=== PATIENT | female | born 1990 | race Caucasian/White ===

== ENCOUNTER 2020-07-07 10:19 | Emergency (ER) | payer SELFPAY ==
[2020-07-07 10:24] VITALS: BP 148/89; PULSE 111; RESP 18; TEMP 36.5; O2SAT 97; BMI 66.5
--- NOTE | 2020-07-07 10:35 | CT_ITS ---
WS: [id number] CT ABDOMEN PELVIS TECHNIQUE: Contrast-enhanced CT of the abdomen and pelvis with coronal and sagittal reformatted image s. CLINICAL INFORMATION: abd pain COMPARISON: None. DLP: 2257.[address] scans at [facility] use at least one of these dose optimization techniques: automat ed exposure control; mA and/or kV adjustment per patient size (includes targeted exams where dose is matched to clinical indication); or iterative reconstruction. FINDINGS: Liver appears normal. Prior cholecystectomy. Normal spleen. Normal GE junction. Lung bases are well a erated. Pancreas appears normal. Normal adrenal glands. No hydronephrosis in either kidney. Normal sigmoid colon. No evidence of small or large bowel obstruction. Fat-containing umbilical herni a. Bowel. Normal caliber abdominal aorta. No abdominal or pelvic lymphadenopathy. Low-attenuation lesion in the right adnexa measuring 4.1 x 3.2 cm. This may represent Ovarian cyst bu t nonspecific. This directly abuts a few loops of small bowel. This can be followed up with ultrasoun d. No free fluid in the pelvis. Normal left adnexa. CT/CT abdomen pelvis w con* [id number] IMPRESSION: 1. Low-attenuation lesion high right adnexa measuring 1.1 x 3.2 cm may represe nt Ovarian cyst but nonspecific. This can be followed up with ultrasound. 2. No evidence of small or large bowel obstruction. 3. Prior cholecystectomy. 4. No free fluid in the abdomen or pelvis. 5. Fat-containing umbilical hernia. 6. No other significant findings.
[2020-07-07 11:09] LABS: Basophils % 0.2 %; Eosinophils # 0.2 10^3/uL (0.0-0.8); Eosinophils % 1.8 %; Hematocrit 45.5 % (37.0-47.0); Hemoglobin 14.5 g/dL (11.5-15.3); Lymphocytes # 1.6 10^3/uL (0.8-4.8); Lymphocytes % 17.3 %; Mean Corpuscular HGB Conc 31.9 g/dL (30.0-36.0); Mean Corpuscular Hemoglobin 30.1 pg (28.0-34.0); Mean Corpuscular Volume 94.4 fL (81-99); Monocytes # 0.5 10^3/uL (0.2-0.9); Monocytes % 5.1 %; Neutrophils # 6.87 10^3/uL (1.8-7.7); Neutrophils % 75.3 %; Nucleated Red Blood Cells % 0 %; Platelet Count 236 10^3/cmm (130-400); Red Blood Count 4.82 10^6/uL (4.1-5.3); Red Cell Distribution Width 14.3 % (12.1-15.1); White Blood Count 9.1 10^3/uL (4.0-10.0)
[2020-07-07 11:13] VITALS: PULSE 88
[2020-07-07 11:14] LABS: HCG Qualitative Urine. Negative (Negative)
--- NOTE | 2020-07-07 11:23 | ED_ITS ---
HPI - Abdominal Pain General: Chief Complaint: Abdominal Pain Stated Complaint: R SIDE AB PAIN Time Seen by Provider: 07/07/20 10:26 History of Present Illness: HPI narrative: 29-year-old female presents emergency room with living will right sided pain that began last night.. Mid abdomen along the right flank little bit more anteriorly. She denies any dysuria urgency or frequency no hematuria no nausea vomiting or diarrhea. Seems to radiate towards her umbilicus and into the lower quadrant a little bit more. She states her last period was 2 weeks ago and was normal for her. She denies any pelvic cramping or pain. No hematochezia melena hematemesis coffee-ground emesis. Function otherwise been normal. MD elicited complaint: abdominal pain Pertinent past history: none Onset (ago): hour(s) Location: RLQ and R flank Quality: cramping and aching Radiation: other (Periumbilical) Exacerbating factors: nothing Relieving factors: nothing Associated Symptoms: Reports bloating; Denies anorexia, belching, change in bowel habits, change in stool character, chills, coffee ground emesis, constipation, GI cramping, diarrhea, dyspepsia, dysuria, excessive flatus, fever(s), heartburn, hematochezia, hematuria, hematemesis, fecal incontinence, loose stools, melena, nausea, poor appetite, syncope and vomiting Related Data: Date of Last Menstrual Period: 06/21/20 Review of Systems Const: Denies: fever(s) or chills ENMT: Denies: throat pain, ear or mastoid pain, nasal discharge or nasal congestion Card: Denies: syncope Resp: Denies: dyspnea, productive cough or non-productive cough GI: Reports: bloating; Denies: nausea, vomiting, hematemesis, coffee ground emesis, heartburn, diarrhea, constipation, GI cramping, belching, excessive flatus, fecal inc ontinence, change in bowel habits, change in stool character, hematochezia or melena : Denies: dysuria or hematuria Skin/Breast: Denies: rash or pruritus [facility] ED Female Reproductive History: Date of last menstrual period: 06/21/20 Physical Exam Const: COMMON NORMALS: no acute distress GENERAL APPEARANCE: cooperative and comfortable ORIENTATION/CONSCIOUSNESS: Yes awake, Yes oriented to person, Yes oriented to place and Yes oriented to time HENMT: COMMON NORMALS: normocephalic, atraumatic, hearing grossly normal bilaterally, external ears normal, EAC's normal, TM's normal bilaterally, Normal nasal mucous membranes and turbinates present, moist oral mucous membranes and oropharynx normal HEAD & SCALP: normocephalic and atraumatic NOSE: Normal nasal mucous membranes and turbinates present EXTERNAL EAR: Yes external ears normal EXTERNAL AUDITORY CANAL: EAC's normal TYMPANIC MEMBRANE: TM's normal bilaterally Neck/C-Spine: COMMON NORMALS: no JVD Resp: COMMON NORMALS: normal respiratory effort, No retractions, No use of accessory muscles and clear to auscultation bilaterally AUSCULTATION: clear to auscultation bilaterally Cardio: COMMON NORMALS: no JVD, regular rate, regular rhythm and No murmurs present (Cardio) RATE: regular rate RHYTHM: regular rhythm GI: COMMON NORMALS: Soft to palpation and No hepatosplenomegaly present AUSCULTATION: Yes normoactive bowel sounds PALPATION: Yes Soft to palpation, No Tenderness to palpation present (GI), No Guarding due to palpation present (GI) and Yes No hepatosplenomegaly present Extremity: COMMON NORMALS: normal to inspection, capillary refill normal, no clubbing, cyanosis or edema, no calf tenderness and no pedal edema Neuro: SENSORIUM/ORIENTATION: Yes oriented to person, Yes oriented to place and Yes oriented to time Skin: COMMON NORMALS: no rashes or lesions noted GENERAL SKIN EXAM: no rashes or lesions noted Course Vital Signs: Vital signs: Vital Signs Temperature 97.7 F 07/07/20 10:24 Pulse Rate 82 07/07/20 13:39 Respiratory Rate 16 07/07/20 13:39 Blood Pressure 118/88 07/07/20 13:39 Pulse Oximetry 98 07/07/20 13:39 MDM - Abdominal Pain MDM Narrative: Medical decision making narrative: CT shows ovarian cyst. She is feeling somewhat better. Going to discharge her home have her use diclofenac as needed follow-up with her primary care doctor for repeat ultrasound within the next 4 to 6 weeks. Lab Data: Labs: Lab Results 07/07/20 07/07/20 07/07/20 Range/Units 11:00 11:00 11:00 WBC 9.1 (4.0-10.0) 10^3/ uL RBC 4.82 (4.1-5.3) 10^6/u L Hgb 14.5 (11.5-15.3) g/dL Hct 45.5 (37.0-47.0) % MCV 94.4 (81-99) fL MCH 30.1 (28.0-34.0) pg MCHC 31.9 (30.0-36.0) g/dL RDW 14.3 (12.1-15.1) % Plt Count 236 (130-400) 10^3/c mm MPV 11.0 H (7.4-10.4) fL Neut % (Auto) 75.3 % Lymph % (Auto) 17.3 % Ness % (Auto) 5.1 % Eos % (Auto) 1.8 % Baso % (Auto) 0.2 % Neut # (Auto) 6.87 (1.8-7.7) 10^3/u L Lymph # (Auto) 1.6 (0.8-4.8) 10^3/u L Ness # (Auto) 0.5 (0.2-0.9) 10^3/u L Eos # (Auto) 0.2 (0.0-0.8) 10^3/u L Baso # (Auto) 0.0 (0.0-0.1) 10^3/u L Nucleated RBC % (a uto) 0 % Nucleated RBCs # 0.0 /100WBC Sodium 136 (136-145) mmol/L Potassium 4.0 (3.5-5.1) mmol/L Chloride 101 (98-107) mmol/L Carbon Dioxide 25 (22-29) mmol/L Anion Gap 14.0 (5-19) BUN 12 (6-20) mg/dL Creatinine 0.6 (0.5-0.9) mg/dL GFR Calculation 117.4 (90-130) mL/min Glucose 88 (65-115) mg/dL Calculated Osmolal ity Not Reportable Calcium 8.5 (8.5-10.5) mg/dL Total Bilirubin 0.5 (0.15-1.2) mg/dL AST 10 (0-32) U/L ALT 19 (0-33) U/L Alkaline Phosphata se 87 (35-105) IU/L Total Protein 7.2 (6.6-8.7) g/dL Albumin 4.1 (3.5-5.2) g/dL Globulin 3.1 (1.3-4.6) g/dL HCG, Qual Negative (Negative) Urine Color (Yellow) Urine Appearance (CLEAR) Urine pH (5-7) Ur Specific Gravit y (1.005-1.030) Urine Protein (Negative) Urine Glucose (UA) (Normal) Urine Ketones (Negative) Urine Blood (Negative) Urine Nitrate (Negative) Urine Bilirubin (Negative) Urine Urobilinogen (Negative) mg/dL Ur Leukocyte Lois ase (Negative) 07/07/20 Range/Units 11:00 WBC (4.0-10.0) 10^3/ uL RBC (4.1-5.3) 10^6/u L Hgb (11.5-15.3) g/dL Hct (37.0-47.0) % MCV (81-99) fL MCH (28.0-34.0) pg MCHC (30.0-36.0) g/dL RDW (12.1-15.1) % Plt Count (130-400) 10^3/c mm MPV (7.4-10.4) fL Neut % (Auto) % Lymph % (Auto) % Ness % (Auto) % Eos % (Auto) % Baso % (Auto) % Neut # (Auto) (1.8-7.7) 10^3/u L Lymph # (Auto) (0.8-4.8) 10^3/u L Ness # (Auto) (0.2-0.9) 10^3/u L Eos # (Auto) (0.0-0.8) 10^3/u L Baso # (Auto) (0.0-0.1) 10^3/u L Nucleated RBC % (a uto) % Nucleated RBCs # /100WBC Sodium (136-145) mmol/L Potassium (3.5-5.1) mmol/L Chloride (98-107) mmol/L Carbon Dioxide (22-29) mmol/L Anion Gap (5-19) BUN (6-20) mg/dL Creatinine (0.5-0.9) mg/dL GFR Calculation (90-130) mL/min Glucose (65-115) mg/dL Calculated Osmolal ity Calcium (8.5-10.5) mg/dL Total Bilirubin (0.15-1.2) mg/dL AST (0-32) U/L ALT (0-33) U/L Alkaline Phosphata se (35-105) IU/L Total Protein (6.6-8.7) g/dL Albumin (3.5-5.2) g/dL Globulin (1.3-4.6) g/dL HCG, Qual (Negative) Urine Color Yellow (Yellow) Urine Appearance Clear (CLEAR) Urine pH 5 (5-7) Ur Specific Gravit y 1.015 (1.005-1.030) Urine Protein Neg (Negative) Urine Glucose (UA) Norm (Normal) Urine Ketones Negative (Negative) Urine Blood Neg (Negative) Urine Nitrate Negative (Negative) Urine Bilirubin Neg (Negative) Urine Urobilinogen Norm (Negative) mg/dL Ur Leukocyte Lois ase Negative (Negative) Discharge Plan Discharge Patient Disposition: Home Clinical Impression: Ovarian cyst Condition: Stable Prescriptions: New diclofenac sodium 75 mg tablet,delayed release (DR/EC) 75 mg PO Q12H PRN (Reason: pain) Qty: 20 RF: 0 Discontinued ibuprofen 200 mg Tablet 800 mg PO PRN RF: 0 No Action Zyrtec 10 mg Tablet 10 mg PO DAILY RF: 0 Tension Headache 500-65 mg Tablet 2 tab PO PRN RF: 0 Discharge Orders: Discharge ED (Routine); Ordered 07/07/20 Ordered By: Esau Sorensen Referrals: Mk Samson MD [Primary Care Provider] - Discharge Diet: Usual diet Discharge Activity: Increase activity as tolerated Patient Instructions: Opioid Safety Coding Level of Care Code ED Assisted Living Nursing Director for Chg Fwd Exam Comprehensive
[2020-07-07 11:28] LABS: Add Urine Microscopic? NO; Charge for UA Resulting for Rev
[2020-07-07 11:30] LABS: Bilirubin Urine Neg (Negative); Blood Urine Neg (Negative); Glucose Urine UA Norm (Normal); Ketones Urine Negative (Negative); Leukocyte Esterase Urine Negative (Negative); Nitrate Urine Negative (Negative); Protein Urine Neg (Negative); Specific Gravity, Urine 1.015 (1.005-1.030); Urine Appearance Clear (CLEAR); Urine Color Yellow (Yellow); Urobilinogen Urine Norm (Negative); pH Urine 5 (5-7)
[2020-07-07 11:37] LABS: Alanine Aminotransferase 19 U/L (0-33); Albumin Level 4.1 g/dL (3.5-5.2); Alkaline Phosphatase 87 IU/L (35-105); Aspartate Amino Transferase 10 U/L (0-32); Blood Urea Nitrogen 12 mg/dL (6-20); Calcium 8.5 mg/dL (8.5-10.5); Carbon Dioxide 25 mmol/L (22-29); Chloride 101 mmol/L (98-107); Globulin 3.1 g/dL (1.3-4.6); Glomerular Filtration Rate 117.4 mL/min (90-130); Glucose 88 mg/dL (65-115); Sodium 136 mmol/L (136-145); Total Bilirubin 0.5 mg/dL (0.15-1.2); Total Protein 7.2 g/dL (6.6-8.7)
[2020-07-07] MEDS: iohexol 350 mg/mL 100 mL Btl IV (11:50)
[2020-07-07 13:39] VITALS: BP 118/88; PULSE 82; RESP 16; O2SAT 98
== END 2020-07-07 13:41 | disposition home or self-care (01) ==
PROVIDERS: Physician Assistant; Emergency Provider Family Medicine; PCP Family Medicine
DX: N83.201 Unspecified ovarian cyst, right side (principal)
CPT/HCPCS: 74177; 80053; 81003; 81025; 85025; 99283; Q9967

== ENCOUNTER 2021-01-01 13:14 | Emergency (ER) | payer OTHER, SELFPAY ==
[2021-01-01 13:45] VITALS: BP 143/94; PULSE 96; RESP 20; TEMP 37; O2SAT 97
[2021-01-01 14:21] LABS: Add Urine Microscopic? NO; Charge for UA Resulting for Rev
[2021-01-01 14:30] LABS: Bilirubin Urine Neg (Negative); Blood Urine Neg (Negative); Glucose Urine UA Norm (Normal); Ketones Urine Negative (Negative); Leukocyte Esterase Urine Negative (Negative); Nitrate Urine Negative (Negative); Protein Urine Neg (Negative); Urine Appearance Hazy (CLEAR); Urine Color Yellow (Yellow); Urobilinogen Urine Norm (Negative); pH Urine 6.5 (5-7)
[2021-01-01 16:30] LABS: Basophils # 0.1 10^3/uL (0.0-0.1); Basophils % 0.5 %; Eosinophils # 0.3 10^3/uL (0.0-0.8); Eosinophils % 2.7 %; Hematocrit 43.6 % (37.0-47.0); Hemoglobin 14.2 g/dL (11.5-15.3); Lymphocytes # 2.1 10^3/uL (0.8-4.8); Lymphocytes % 21.1 %; Mean Corpuscular HGB Conc 32.6 g/dL (30.0-36.0); Mean Corpuscular Hemoglobin 30.7 pg (28.0-34.0); Mean Corpuscular Volume 94.4 fl (81-99); Mean Platelet Volume 11.2 fL (7.4-10.4); Monocytes # 0.5 10^3/uL (0.2-0.9); Monocytes % 4.5 %; Neutrophils # 7.12 10^3/uL (1.8-7.7); Neutrophils % 70.9 %; Nucleated Red Blood Cells % 0 %; Platelet Count 266 10^3/cmm (130-400); Red Blood Count 4.62 10^6/uL (4.1-5.3); Red Cell Distribution Width 13.9 % (12.1-15.1)
--- NOTE | 2021-01-01 16:35 | CTR_ITS ---
PROCEDURE INFORMATION: Exam: CT Abdomen And Pelvis With Contrast Exam date and time: 01/01/2021 4:35 PM Age: 30 years old Clinical indication: Abdominal pain; Periumbilical; Prior surgery; Surgery type: , gb; Patient HX: Best images due to body habitus; Additional info: Diffuse abd pain, bloating, umbilical hernia, rectal bleed TECHNIQUE: Imaging protocol: Computed tomography of the abdomen and pelvis with contrast. Axial, coronal and sagittal reformatted images were created and reviewed. Radiation optimization: All CT scans at this facility use at least one of these dose optimization techniques: automated exposure control; mA and/or kV adjustment per patient size (includes targeted exams where dose is matched to clinical indication); or iterative reconstruction. Contrast material: OMNI 350; Contrast volume: 95 ml; Contrast route: INTRAVENOUS (IV); COMPARISON: CT abdomen pelvis w con* [id number] 07/07/2020 11:45 AM RADIATION DOSE METRICS: Total DLP (mGy-cm): FINDINGS: Liver: Unremarkable. Gallbladder and bile ducts: Status post cholecystectomy. No biliary ductal dilatation. Pancreas: Unremarkable. Spleen: Unremarkable. Adrenal glands: Normal. No mass. Kidneys and ureters: No mass. No radiodense calculi. No hydronephrosis. Stomach and bowel: No bowel wall thickening. No obstruction. No pneumatosis. Appendix: Normal. Intraperitoneal space: No free fluid. No organized fluid collection. No free air. Vasculature: Unremarkable. No aneurysm. Lymph nodes: No pathologically enlarged lymph nodes. Urinary bladder: Unremarkable as visualized. Reproductive: Probable involuting right ovarian corpus luteal cyst. Bones/joints: No acute osseous abnormality. Mild degenerative changes. Soft tissues: Fat containing umbilical hernia. Mild subcutaneous stranding in the anterior abdominal wall with overlying skin thickening, suggestive of cellulitis. CT/CT abdomen pelvis w con* [id number]: 1[address] No CT evidence of acute intra-abdominal or pelvic pathology. 2. Additional findings, as above. Radiation Dose CTDIVOL = (mGy): DLP = 1992.78 (mGy-cm)
--- NOTE | 2021-01-01 16:35 | ED_ITS ---
Documented by User: ELÍAS Melendez 01/05/21 07:25 HPI - Abdominal Pain General: Chief Complaint: Abdominal Pain Stated Complaint: Abdominal issues, Rectal Bleeding Time Seen by Provider: 01/01/21 16:04 Source: patient and family Mode of arrival: ambulatory Limitations: no limitations History of Present Illness: HPI narrative: Patient is a 30-year-old female who presents to ED today along with family for complaints of diffuse abdominal pain, bloating, gas, and episode of rectal bleeding earlier today, and concerns regarding an umbilical hernia. Patient tells me she has had diffuse abdominal pain and bloating over the past several weeks. She feels like this is progressively worsening. She states her stools are normally loose ever since he r cholecystectomy. She states over the past 24 hours she has only had one stool which is very abnormal for her. She states that one stool did contain approximately 3 to 4 teaspoons of bright red blood. She thinks she does have a hemorrhoid but this is never bothered her previously. Her abdominal hernia she states is constantly uncomfortable and seems to worsen with coughing. Other abdominal surgeries include a section. MD elicited complaint: abdominal pain Pain Consistency: constant Location: Diffuse Associated Symptoms: Reports bloating, diarrhea (chronic following cholecystectomy ) and other (bright red blood during last bowel movement); Denies chills, dysuria, fever(s) and hematemesis Related Data: Date of Last Menstrual Period: 12/17/20 Review of Systems Const: Denies: fever(s), chills, body aches, fatigue or malaise Card: Denies: chest pain Resp: Denies: dyspnea GI: Reports: abdominal pain, diarrhea (chronic following cholecystectomy ), bloating and other (bright red blood during last bowel movement); Denies: hematemesis : Denies: flank pain or dysuria Musc: Denies: neck pain or back pain Skin/Breast: Denies: rash Neuro: Denies: headache(s) [facility] ED Female Reproductive History: Date of last menstrual period: 12/17/20 Physical Exam Const: COMMON NORMALS: no acute distress, patient oriented x3, no limitations and alert NUTRITIONAL APPEARANCE: obese morbidly obese ORIENTATION/CONSCIOUSNESS: Yes awake, Yes oriented to person, Yes oriented to place and Yes oriented to time HENMT: COMMON NORMALS: normocephalic and atraumatic HEAD & SCALP: normocephalic and atraumatic Resp: COMMON NORMALS: normal respiratory effort and clear to auscultation bilaterally AUSCULTATION: clear to auscultation bilaterally Cardio: COMMON NORMALS: regular rate and regular rhythm RATE: regular rate RHYTHM: regular rhythm GI: COMMON NORMALS: Soft to palpation AUSCULTATION: Yes normoactive bowel sounds PALPATION: Yes Soft to palpation RECTAL EXAM: heme negative stool and no hemorrhoids noted OTHER: exam is severely limited given patient's morbid obesity; she has a small umbilical hernia present that does not clinically appear incarcerated Extremity: COMMON NORMALS: normal to inspection Neuro: COMMON NORMALS: patient oriented x3 SENSORIUM/ORIENTATION: Yes alert, Yes oriented to person, Yes oriented to place and Yes oriented to time Skin: COMMON NORMALS: no rashes or lesions noted GENERAL SKIN EXAM: no rashes or lesions noted Course Vital Signs: Vital signs: Vital Signs Temperature 98.6 F 01/01/21 13:45 Pulse Rate 76 01/01/21 19:53 Respiratory Rate 18 01/01/21 19:53 Blood Pressure 97/52 01/01/21 19:53 Pulse Oximetry 94 01/01/21 19:53 MDM - Abdominal Pain MDM Narrative: Medical decision making narrative: Care transferred to ERVIN Brady pending CT imaging. Hemoccult was negative. Hernia clinically does not appear incarcerated however exam is severely limited given patient's morbid obesity status. Lab Data: Labs: Lab Results 01/01/21 01/01/21 01/01/21 14:05 16:10 16:10 WBC 10.0 10^3/uL 10^3 /uL (4.0-10.0) RBC 4.62 10^6/uL 10^6 /uL (4.1-5.3) Hgb 14.2 g/dL g/dL (11.5-15.3) Hct 43.6 % % (37.0-47.0) MCV 94.4 fl fl (81-99) MCH 30.7 pg pg (28.0-34.0) MCHC 32.6 g/dL g/dL (30.0-36.0) RDW 13.9 % % (12.1-15.1) Plt Count 266 10^3/cmm 10^3 /cmm (130-400) MPV 11.2 fL H fL (7.4-10.4) Neut % (Auto) 70.9 % % Lymph % (Auto) 21.1 % % [place] % (Auto) 4.5 % % Eos % (Auto) 2.7 % % Baso % (Auto) 0.5 % % Neut # (Auto) 7.12 10^3/uL 10^3 /uL (1.8-7.7) Lymph # (Auto) 2.1 10^3/uL 10^3/ uL (0.8-4.8) [place] # (Auto) 0.5 10^3/uL 10^3/ uL (0.2-0.9) Eos # (Auto) 0.3 10^3/uL 10^3/ uL (0.0-0.8) Baso # (Auto) 0.1 10^3/uL 10^3/ uL (0.0-0.1) Nucleated RBC % (a uto) 0 % % Nucleated RBCs # 0.0 /100WBC /100W BC PT 12.60 SECONDS SEC ONDS (12.1-14.9) INR 0.91 (0.8-1.2) APTT 27.4 SECONDS SECO NDS (23.9-36.7) Sodium Potassium Chloride Carbon Dioxide Anion Gap BUN Creatinine GFR Calculation Glucose Calculated Osmolal ity Calcium Total Bilirubin AST ALT Alkaline Phosphata se Total Protein Albumin Globulin HCG, Qual Urine Color Yellow (Yellow) Urine Appearance Hazy A (CLEAR) Urine pH 6.5 (5-7) Ur Specific Gravit y 1.020 (1.005-1.030) Urine Protein Neg (Negative) Urine Glucose (UA) Norm (Normal) Urine Ketones Negative (Negative) Urine Blood Neg (Negative) Urine Nitrate Negative (Negative) Urine Bilirubin Neg (Negative) Urine Urobilinogen Norm mg/dL mg/dL (Negative) Ur Leukocyte Lois ase Negative (Negative) 01/01/21 01/01/21 16:10 16:10 WBC RBC Hgb Hct MCV MCH MCHC RDW Plt Count MPV Neut % (Auto) Lymph % (Auto) [place] % (Auto) Eos % (Auto) Baso % (Auto) Neut # (Auto) Lymph # (Auto) [place] # (Auto) Eos # (Auto) Baso # (Auto) Nucleated RBC % (a uto) Nucleated RBCs # PT INR APTT Sodium 135 mmol/L L mmol /L (136-145) Potassium 4.0 mmol/L mmol/L (3.5-5.1) Chloride 97 mmol/L L mmol/ L (98-107) Carbon Dioxide 28 mmol/L mmol/L (22-29) Anion Gap 14.0 (5-19) BUN 10 mg/dL mg/dL (6-20) Creatinine 0.6 mg/dL mg/dL (0.5-0.9) GFR Calculation 116.6 mL/min mL/m in (90-130) Glucose 92 mg/dL mg/dL (65-115) Calculated Osmolal ity 279 mOsm/kg L mOs m/kg (285-295) Calcium 9.0 mg/dL mg/dL (8.5-10.5) Total Bilirubin 0.3 mg/dL mg/dL (0.15-1.2) AST 15 U/L U/L (0-32) ALT 18 U/L U/L (0-33) Alkaline Phosphata se 93 IU/L IU/L (35-105) Total Protein 7.3 g/dL g/dL (6.6-8.7) Albumin 3.8 g/dL g/dL (3.5-5.2) Globulin 3.5 g/dL g/dL (1.3-4.6) HCG, Qual Negative (Negative) Urine Color Urine Appearance Urine pH Ur Specific Gravit y Urine Protein Urine Glucose (UA) Urine Ketones Urine Blood Urine Nitrate Urine Bilirubin Urine Urobilinogen Ur Leukocyte Lois ase Discharge Plan Discharge Patient Disposition: Home Clinical Impression: Hematochezia Ovarian cyst Qualifiers: Laterality: right Qualified Code(s): N83.201 - Unspecified ovarian cyst, right side Hernia, ventral Qualifiers: Obstruction and gangrene presence: without obstruction or gangrene Qualified Code(s): K43.9 - Ventral hernia without obstruction or gangrene Condition: Stable Prescriptions: New Celebrex 100 mg capsule 100 mg PO BID Qty: 20 RF: 0 Discontinued diclofenac sodium 75 mg tablet,delayed release (DR/EC) 75 mg PO Q12H PRN (Reason: pain) Qty: 20 RF: 0 No Action Zyrtec 10 mg Tablet 10 mg PO DAILY RF: 0 Tension Headache 500-65 mg Tablet 2 tab PO PRN RF: 0 Discharge Orders: Discharge ED (Routine); Ordered 01/01/21 Ordered By: Antoine Fallon Referrals: Mk Samson MD [Primary Care Provider] - Discharge Diet: Usual diet Discharge Activity: Increase activity as tolerated Activity Restrictions/Additional Instructions: Follow-up with medical provider as directed. Take medications as prescribed. Return to the ER or your medical provider if condition worsens. Please read and understand discharge instructions. If any questions ask please. Hospital will contact you with appointment for general surgeon to go over options to take care of hernia and blood in stool. Coding Level of Care Code ED [employer] Servicer for Chg Fwd Exam Detailed Documented by User: ERVIN Brady 01/03/21 01:19 HPI - Abdominal Pain General: Chief Complaint: Abdominal Pain Stated Complaint: Abdominal issues, Rectal Bleeding Time Seen by Provider: 01/01/21 16:04 Course Vital Signs: Vital signs: Vital Signs Temperature 98.6 F 01/01/21 13:45 Pulse Rate 76 01/01/21 19:53 Respiratory Rate 18 01/01/21 19:53 Blood Pressure 97/52 01/01/21 19:53 Pulse Oximetry 94 01/01/21 19:53 MDM - Abdominal Pain Lab Data: Labs: Lab Results 01/01/21 01/01/21 01/01/21 14:05 16:10 16:10 WBC 10.0 10^3/uL 10^3 /uL (4.0-10.0) RBC 4.62 10^6/uL 10^6 /uL (4.1-5.3) Hgb 14.2 g/dL g/dL (11.5-15.3) Hct 43.6 % % (37.0-47.0) MCV 94.4 fl fl (81-99) MCH 30.7 pg pg (28.0-34.0) MCHC 32.6 g/dL g/dL (30.0-36.0) RDW 13.9 % % (12.1-15.1) Plt Count 266 10^3/cmm 10^3 /cmm (130-400) MPV 11.2 fL H fL (7.4-10.4) Neut % (Auto) 70.9 % % Lymph % (Auto) 21.1 % % [place] % (Auto) 4.5 % % Eos % (Auto) 2.7 % % Baso % (Auto) 0.5 % % Neut # (Auto) 7.12 10^3/uL 10^3 /uL (1.8-7.7) Lymph # (Auto) 2.1 10^3/uL 10^3/ uL (0.8-4.8) [place] # (Auto) 0.5 10^3/uL 10^3/ uL (0.2-0.9) Eos # (Auto) 0.3 10^3/uL 10^3/ uL (0.0-0.8) Baso # (Auto) 0.1 10^3/uL 10^3/ uL (0.0-0.1) Nucleated RBC % (a uto) 0 % % Nucleated RBCs # 0.0 /100WBC /100W BC PT 12.60 SECONDS SEC ONDS (12.1-14.9) INR 0.91 (0.8-1.2) APTT 27.4 SECONDS SECO NDS (23.9-36.7) Sodium Potassium Chloride Carbon Dioxide Anion Gap BUN Creatinine GFR Calculation Glucose Calculated Osmolal ity Calcium Total Bilirubin AST ALT Alkaline Phosphata se Total Protein Albumin Globulin HCG, Qual Urine Color Yellow (Yellow) Urine Appearance Hazy A (CLEAR) Urine pH 6.5 (5-7) Ur Specific Gravit y 1.020 (1.005-1.030) Urine Protein Neg (Negative) Urine Glucose (UA) Norm (Normal) Urine Ketones Negative (Negative) Urine Blood Neg (Negative) Urine Nitrate Negative (Negative) Urine Bilirubin Neg (Negative) Urine Urobilinogen Norm mg/dL mg/dL (Negative) Ur Leukocyte Lois ase Negative (Negative) 01/01/21 01/01/21 16:10 16:10 WBC RBC Hgb Hct MCV MCH MCHC RDW Plt Count MPV Neut % (Auto) Lymph % (Auto) [place] % (Auto) Eos % (Auto) Baso % (Auto) Neut # (Auto) Lymph # (Auto) [place] # (Auto) Eos # (Auto) Baso # (Auto) Nucleated RBC % (a uto) Nucleated RBCs # PT INR APTT Sodium 135 mmol/L L mmol /L (136-145) Potassium 4.0 mmol/L mmol/L (3.5-5.1) Chloride 97 mmol/L L mmol/ L (98-107) Carbon Dioxide 28 mmol/L mmol/L (22-29) Anion Gap 14.0 (5-19) BUN 10 mg/dL mg/dL (6-20) Creatinine 0.6 mg/dL mg/dL (0.5-0.9) GFR Calculation 116.6 mL/min mL/m in (90-130) Glucose 92 mg/dL mg/dL (65-115) Calculated Osmolal ity 279 mOsm/kg L mOs m/kg (285-295) Calcium 9.0 mg/dL mg/dL (8.5-10.5) Total Bilirubin 0.3 mg/dL mg/dL (0.15-1.2) AST 15 U/L U/L (0-32) ALT 18 U/L U/L (0-33) Alkaline Phosphata se 93 IU/L IU/L (35-105) Total Protein 7.3 g/dL g/dL (6.6-8.7) Albumin 3.8 g/dL g/dL (3.5-5.2) Globulin 3.5 g/dL g/dL (1.3-4.6) HCG, Qual Negative (Negative) Urine Color Urine Appearance Urine pH Ur Specific Gravit y Urine Protein Urine Glucose (UA) Urine Ketones Urine Blood Urine Nitrate Urine Bilirubin Urine Urobilinogen Ur Leukocyte Lois ase Discharge Plan Discharge Patient Disposition: Home Clinical Impression: Hematochezia Ovarian cyst Qualifiers: Laterality: right Qualified Code(s): N83.201 - Unspecified ovarian cyst, right side Hernia, ventral Qualifiers: Obstruction and gangrene presence: without obstruction or gangrene Qualified Code(s): K43.9 - Ventral hernia without obstruction or gangrene Condition: Stable Prescriptions: New Celebrex 100 mg capsule 100 mg PO BID Qty: 20 RF: 0 Discontinued diclofenac sodium 75 mg tablet,delayed release (DR/EC) 75 mg PO Q12H PRN (Reason: pain) Qty: 20 RF: 0 No Action Zyrtec 10 mg Tablet 10 mg PO DAILY RF: 0 Tension Headache 500-65 mg Tablet 2 tab PO PRN RF: 0 Discharge Orders: Discharge ED (Routine); Ordered 01/01/21 Ordered By: Antoine Fallon Referrals: Mk Samson MD [Primary Care Provider] - Discharge Diet: Usual diet Discharge Activity: Increase activity as tolerated Activity Restrictions/Additional Instructions: Follow-up with medical provider as directed. Take medications as prescribed. Return to the ER or your medical provider if condition worsens. Please read and understand discharge instructions. If any questions ask please. Hospital will contact you with appointment for general surgeon to go over options to take care of hernia and blood in stool. Coding Level of Care Code ED [employer] Servicer for Chg Fwd Exam Detailed Documented by User: Esau Sorensen DO 01/05/21 08:54 HPI - Abdominal Pain General: Chief Complaint: Abdominal Pain Stated Complaint: Abdominal issues, Rectal Bleeding Time Seen by Provider: 01/01/21 16:04 Course Vital Signs: Vital signs: Vital Signs Temperature 98.6 F 01/01/21 13:45 Pulse Rate 76 01/01/21 19:53 Respiratory Rate 18 01/01/21 19:53 Blood Pressure 97/52 01/01/21 19:53 Pulse Oximetry 94 01/01/21 19:53 MDM - Abdominal Pain MDM Narrative: Medical decision making narrative: Chart reviewed and patient discussed with midlevel. Agree with assessment and plan. Lab Data: Labs: Lab Results 01/01/21 01/01/21 01/01/21 14:05 16:10 16:10 WBC 10.0 10^3/uL 10^3 /uL (4.0-10.0) RBC 4.62 10^6/uL 10^6 /uL (4.1-5.3) Hgb 14.2 g/dL g/dL (11.5-15.3) Hct 43.6 % % (37.0-47.0) MCV 94.4 fl fl (81-99) MCH 30.7 pg pg (28.0-34.0) MCHC 32.6 g/dL g/dL (30.0-36.0) RDW 13.9 % % (12.1-15.1) Plt Count 266 10^3/cmm 10^3 /cmm (130-400) MPV 11.2 fL H fL (7.4-10.4) Neut % (Auto) 70.9 % % Lymph % (Auto) 21.1 % % [place] % (Auto) 4.5 % % Eos % (Auto) 2.7 % % Baso % (Auto) 0.5 % % Neut # (Auto) 7.12 10^3/uL 10^3 /uL (1.8-7.7) Lymph # (Auto) 2.1 10^3/uL 10^3/ uL (0.8-4.8) [place] # (Auto) 0.5 10^3/uL 10^3/ uL (0.2-0.9) Eos # (Auto) 0.3 10^3/uL 10^3/ uL (0.0-0.8) Baso # (Auto) 0.1 10^3/uL 10^3/ uL (0.0-0.1) Nucleated RBC % (a uto) 0 % % Nucleated RBCs # 0.0 /100WBC /100W BC PT 12.60 SECONDS SEC ONDS (12.1-14.9) INR 0.91 (0.8-1.2) APTT 27.4 SECONDS SECO NDS (23.9-36.7) Sodium Potassium Chloride Carbon Dioxide Anion Gap BUN Creatinine GFR Calculation Glucose Calculated Osmolal ity Calcium Total Bilirubin AST ALT Alkaline Phosphata se Total Protein Albumin Globulin HCG, Qual Urine Color Yellow (Yellow) Urine Appearance Hazy A (CLEAR) Urine pH 6.5 (5-7) Ur Specific Gravit y 1.020 (1.005-1.030) Urine Protein Neg (Negative) Urine Glucose (UA) Norm (Normal) Urine Ketones Negative (Negative) Urine Blood Neg (Negative) Urine Nitrate Negative (Negative) Urine Bilirubin Neg (Negative) Urine Urobilinogen Norm mg/dL mg/dL (Negative) Ur Leukocyte Lois ase Negative (Negative) 01/01/21 01/01/21 16:10 16:10 WBC RBC Hgb Hct MCV MCH MCHC RDW Plt Count MPV Neut % (Auto) Lymph % (Auto) [place] % (Auto) Eos % (Auto) Baso % (Auto) Neut # (Auto) Lymph # (Auto) [place] # (Auto) Eos # (Auto) Baso # (Auto) Nucleated RBC % (a uto) Nucleated RBCs # PT INR APTT Sodium 135 mmol/L L mmol /L (136-145) Potassium 4.0 mmol/L mmol/L (3.5-5.1) Chloride 97 mmol/L L mmol/ L (98-107) Carbon Dioxide 28 mmol/L mmol/L (22-29) Anion Gap 14.0 (5-19) BUN 10 mg/dL mg/dL (6-20) Creatinine 0.6 mg/dL mg/dL (0.5-0.9) GFR Calculation 116.6 mL/min mL/m in (90-130) Glucose 92 mg/dL mg/dL (65-115) Calculated Osmolal ity 279 mOsm/kg L mOs m/kg (285-295) Calcium 9.0 mg/dL mg/dL (8.5-10.5) Total Bilirubin 0.3 mg/dL mg/dL (0.15-1.2) AST 15 U/L U/L (0-32) ALT 18 U/L U/L (0-33) Alkaline Phosphata se 93 IU/L IU/L (35-105) Total Protein 7.3 g/dL g/dL (6.6-8.7) Albumin 3.8 g/dL g/dL (3.5-5.2) Globulin 3.5 g/dL g/dL (1.3-4.6) HCG, Qual Negative (Negative) Urine Color Urine Appearance Urine pH Ur Specific Gravit y Urine Protein Urine Glucose (UA) Urine Ketones Urine Blood Urine Nitrate Urine Bilirubin Urine Urobilinogen Ur Leukocyte Lois ase Discharge Plan Discharge Patient Disposition: Home Clinical Impression: Hematochezia Ovarian cyst Qualifiers: Laterality: right Qualified Code(s): N83.201 - Unspecified ovarian cyst, right side Hernia, ventral Qualifiers: Obstruction and gangrene presence: without obstruction or gangrene Qualified Code(s): K43.9 - Ventral hernia without obstruction or gangrene Condition: Stable Prescriptions: New Celebrex 100 mg capsule 100 mg PO BID Qty: 20 RF: 0 Discontinued diclofenac sodium 75 mg tablet,delayed release (DR/EC) 75 mg PO Q12H PRN (Reason: pain) Qty: 20 RF: 0 No Action Zyrtec 10 mg Tablet 10 mg PO DAILY RF: 0 Tension Headache 500-65 mg Tablet 2 tab PO PRN RF: 0 Discharge Orders: Discharge ED (Routine); Ordered 01/01/21 Ordered By: Antoine Fallon Referrals: Mk Samson MD [Primary Care Provider] - Discharge Diet: Usual diet Discharge Activity: Increase activity as tolerated Activity Restrictions/Additional Instructions: Follow-up with medical provider as directed. Take medications as prescribed. Return to the ER or your medical provider if condition worsens. Please read and understand discharge instructions. If any questions ask please. Hospital will contact you with appointment for general surgeon to go over options to take care of hernia and blood in stool. Coding Level of Care Code ED [employer] Servicer for Chg Fwd Exam Detailed
[2021-01-01 16:42] LABS: INR 0.91 (0.8-1.2)
[2021-01-01 16:43] LABS: Partial Thromboplastin Time 27.4 SECONDS (23.9-36.7)
[2021-01-01 16:46] VITALS: BP 152/103; PULSE 78; RESP 26; O2SAT 99
[2021-01-01 16:48] LABS: Albumin Level 3.8 g/dL (3.5-5.2); Alkaline Phosphatase 93 IU/L (35-105); Aspartate Amino Transferase 15 U/L (0-32); Blood Urea Nitrogen 10 mg/dL (6-20); Carbon Dioxide 28 mmol/L (22-29); Chloride 97 mmol/L (98-107); Globulin 3.5 g/dL (1.3-4.6); Glomerular Filtration Rate 116.6 mL/min (90-130); Glucose 92 mg/dL (65-115); Osmolality Calculated 279 mOsm/kg (285-295); Sodium 135 mmol/L (136-145); Total Bilirubin 0.3 mg/dL (0.15-1.2); Total Protein 7.3 g/dL (6.6-8.7)
[2021-01-01 16:52] LABS: HCG, Serum Qual Negative (Negative)
[2021-01-01 16:59] LABS: Alanine Aminotransferase 18 U/L (0-33)
--- NOTE | 2021-01-01 17:25 | PC.NURSE ---
pt reports weight approximately 400lbs
[2021-01-01] MEDS: iohexol 350 mg/mL 100 mL Btl IV (17:46)
[2021-01-01 19:53] VITALS: BP 97/52; PULSE 76; RESP 18; O2SAT 94
--- NOTE | 2021-01-02 09:05 | DCPLANNER ---
territory manager had message to schedule a follow up appointment for patient with general surgery. territory manager emailed patients information to both Aisha and Jerica at [facility] General Surgery / ENT clinic. Patients information will be printed and reviewed. Clinic will call patient with appointment information.
--- NOTE | 2021-01-06 15:27 | DCPLANNER ---
Patient has a follow up appointment scheduled for , January 08, 2021 at 8:00 with at [facility] General Surgery. Clinic will call patient with appointment information.
--- NOTE | 2021-03-15 16:21 | DCPLANNER ---
Patient had a follow up appointment scheduled with general surgery - patient did attend appointment.
== END 2021-01-01 19:55 | disposition home or self-care (01) ==
PROVIDERS: Physician Assistant; Emergency Provider Nurse Practitioner Family; PCP Family Medicine
DX: K43.9 Ventral hernia without obstruction or gangrene (principal); N83.201 Unspecified ovarian cyst, right side; K92.1 Melena
CPT/HCPCS: 74177; 80053; 81003; 84703; 85025; 85610; 85730; 99283; Q9967

== ENCOUNTER 2021-11-01 07:40 | Emergency (ER) | payer OTHER, SELFPAY ==
[2021-11-01 07:59] VITALS: BP 152/89; PULSE 84; RESP 16; TEMP 37; O2SAT 97; BMI 79.7
--- NOTE | 2021-11-01 08:04 | W.ED.FALL ---
HPI - Fall General: Chief Complaint: Fall Stated Complaint: Left arm pain Time Seen by Provider: 11/01/21 08:04 Source: patient Mode of arrival: ambulatory Limitations: no limitations History of Present Illness: 31-year-old female presents to the ER today for left elbow pain and right ankle pain after a fall yesterday. Patient reports the first time she fell off of a porch. She she reports she missed a step and fell. Patient reports that time she landed and hit her right elbow. Patient reports she has some abrasions to the right elbow. This morning when she woke up she had some swelling and pain with straightening of the left arm. She also reports some shooting pain down into her hand with certain movements. Patient reports she fell a second time yesterday after tripping over a ground wire. She reports that time she tweaked her right ankle. Patient reports an old right ankle injury. She reports she is able to walk on it and there is no obvious swelling at this time. She reports she thinks she just exacerbated an old injury. Patient denies hitting her head. Denies any loss of consciousness. Review of Systems General: Reports: 10 or more systems reviewed and unremarkable except in HPI and below PFSH ED PFSH: Social History Smoking and tobacco status: current every day smoker Female Reproductive History: Date of last menstrual period: 12/17/20 Physical Exam Const: COMMON NORMALS: no acute distress, patient oriented x3, no limitations, alert and well nourished Resp: COMMON NORMALS: normal respiratory effort EFFORT & INSPECTION: Yes able to speak in complete sentences Cardio: COMMON NORMALS: regular rate and regular rhythm RATE: regular rate RHYTHM: regular rhythm Extremity: NARRATIVE EXTREMITY EXAM: Patient has some mild swelling of the left elbow over the area of an abrasion. Patient is able to fully flex and extend elbow however has some pain that radiates into the hand with extension. Patient has no obvious swelling of the right ankle. No other bony deformities noted. Neuro: COMMON NORMALS: patient oriented x3 SENSORIUM/ORIENTATION: Yes alert Psych: COMMON NORMALS: mental status grossly normal, Normal thought process present and cooperative THOUGHT PROCESS: Normal thought process present Skin: NARRATIVE SKIN EXAM: Patient has some nonbleeding abrasions noted to the left elbow. She does have a bandage on these and they appear to be healing nicely. Course ED course: 31-year-old female presents to the ER today for left elbow pain and right ankle pain after a couple falls yesterday. Patient reports her primary concern is the left elbow as she has pain with movement, swelling, and pain radiating down into her hand. Patient reports she has an old right ankle injury however is able to walk on the ankle and does not note any deformities there. We will get an x-ray of the left elbow. Likely patient just exacerbated an old injury of the right ankle. Vital Signs: Vital signs: Vital Signs Temperature 98.6 F 11/01/21 07:59 Pulse Rate 84 11/01/21 07:59 Respiratory Rate 16 11/01/21 07:59 Blood Pressure 152/89 11/01/21 07:59 Pulse Oximetry 97 11/01/21 07:59 MDM - Fall Medical Decision Making 31-year-old female presents to the ER today for left elbow pain and right ankle pain after a couple falls yesterday. Patient reports her primary concern is the left elbow as she has pain with movement, swelling, and pain radiating down into her hand. Patient reports she has an old right ankle injury however is able to walk on the ankle and does not note any deformities there. We will get an x-ray of the left elbow. Likely patient just exacerbated an old injury of the right ankle. X-ray left elbow appears negative for any acute fractures. Patient has some soft tissue swelling. Likely contusion. Discussed findings with patient. Recommended ice and ibuprofen for pain. Follow-up with PCP in 1 week if no improvement. Return to the ER with any new or worsening symptoms. Patient verbalized understanding and was in agreement with the treatment plan. Critical Care Time Critical Care Time: Critical Care Time: No Discharge Plan Discharge Patient Disposition: Home Clinical Impression: Contusion of elbow, left Qualifiers: Encounter type: initial encounter Qualified Code(s): S50.02XA - Contusion of left elbow, initial encounter Condition: Stable Prescriptions: No Action sulfamethoxazole-trimethoprim [Bactrim DS] 800-160 mg tablet 1 tab PO BID 10 Days Qty: 20 0RF Zyrtec 10 mg Tablet 10 mg PO DAILY Tension Headache 500-65 mg Tablet 2 tab PO PRN Discharge Orders: Discharge ED (Routine); Ordered 11/01/21 Ordered By: Yolanda Weaver Referrals: kM Samson MD [Primary Care Provider] - Discharge Diet: Usual diet Discharge Activity: Increase activity as tolerated Patient Instructions: Opioid Safety Activity Restrictions/Additional Instructions: Apply ice to reduce swelling. Take Aleve as discussed. Follow-up with PCP in 7 to 10 days if no improvement. Return to the ER with any new or worsening symptoms. Coding Level of Care Code ED Dermatological Surgeon for Otoniel[facility] Fwd Exam Expanded Problem Focused
--- NOTE | 2021-11-01 08:07 | XRR_ITS ---
PROCEDURE INFORMATION: Exam: XR Left Elbow Exam date and time: 11/01/2021 8:16 AM Age: 31 years old Clinical indication: Injury or trauma; Fall; Blunt trauma (contusions or hematomas); Elbow; Left; Additional info: Fall with elbow pain TECHNIQUE: Imaging protocol: Radiologic exam of the Left elbow. Views: 3 or more views. COMPARISON: No relevant prior studies available. FINDINGS: Bones/joints: No acute fracture or malalignment. Joint spaces are maintained. No joint effusion. Soft tissues: Mild soft tissue swelling over the dorsal aspect of the proximal forearm. XR/XR elbow LT min 3V* [id number] IMPRESSION: No acute fracture or malalignment.
--- NOTE | 2021-11-01 08:59 | PC.NURSE ---
Patient has bilateral equal breathing with clear breath sounds at 22 bpm. HR 85. Patient sitting on bed with no questions at this time.
[2021-11-01 09:03] VITALS: PULSE 85; RESP 22; O2SAT 96
== END 2021-11-01 09:04 | disposition home or self-care (01) ==
PROVIDERS: Emergency Provider Physician Assistant; PCP Family Medicine
DX: S50.02XA Contusion of left elbow, initial encounter (principal); M25.571 Pain in right ankle and joints of right foot; W10.8XXA Fall (on) (from) other stairs and steps, initial encounter
CPT/HCPCS: 73080; 99283

== ENCOUNTER → 2022-04-19 10:27 | Outpatient (BNVA) | payer OTHER, SELFPAY | PROVIDERS: PCP Family Medicine; Visit Provider Family Medicine | DX: Z30.9 Encounter for contraceptive management, unspecified (principal) | CPT/HCPCS: 81025 ==

== ENCOUNTER 2022-05-27 09:38 | Day surgery (SDC) | payer OTHER, SELFPAY ==
[2022-05-26 13:58] VITALS: BMI 80.1
[2022-05-27] VITALS (18 sets, daily range): BP systolic 87–153; BP diastolic 59–93; PULSE 74–90; RESP 16–18; TEMP 36.4–37.1; O2SAT 91–97
[2022-05-27 09:51] LABS: OR HCG Qualitative Urine Negative (Negative)
--- NOTE | 2022-05-27 10:10 | W.PM.OPSUD ---
Surgery/Procedure H&P Update DATE OF PROCEDURE: May 27, 2022 DATE H&P PERFORMED: 05/04/22 H&P UPDATE INFORMATION: I have reviewed H&P completed within last 30 days, I have examined patient prior to procedure and No changes to prior documentation PREOP DIAGNOSIS: umbilical hernia PLANNED PROCEDURE: Operation Date: 05/27/22 11:10 Proposed Procedures p 21228 lap umbilical hernia with mesh K42.(Not Applicable) - Mike Malik DO
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
[2022-05-27] MEDS: sodium chloride 0.9% 1,000 ML 30 ML IV (10:30)
[2022-05-27] MEDS: lidocaine-epi 2% 20 mL INJ INJECTION (11:29)
--- NOTE | 2022-05-27 12:00 | PM.OP ---
Operative Report Date of procedure: May 27, 2022 Pre-op diagnosis: Preop Diagnosis umbilical hernia Post-op diagnosis: same Procedure done: Laparoscopic repair of umbilical hernia with mesh Implants: 6 inch round Ventralight mesh Specimens removed/disposition: Hernia sac Surgeon: Dr. Mike Malik DO Anesthesia: General Estimated blood loss (mL): 5 Complications: None apparent Brief History: This is a very pleasant 31-year-old female who presented my office with an incarcerated umbilical hernia. Laparoscopic repair with mesh was indicated. The risk and benefits were explained and documented. Procedure: Patient was wheeled into the operative room and placed on the OR table in a supine position. Abdomen was inspected prepped and draped in usual sterile fashion. Time-out was performed and all present were in agreement. A 15 blade scalp was used to make a 5 millimeter incision left upper quadrant. A Veress needle was placed into the incision and intra-abdominal insufflation was brought to 15 millimeters of mercury. A 12 millimeter trocar was placed into the left lower quadrant. The energy but device was then used to cut out the hernia sac. A 6 inch ventral light mesh was placed into the abdomen and brought up through the umbilicus using an the Srinivasan-Sade. The mesh was then tacked in place in a double crown fashion. The skeleton of the mesh was removed via the left lower quadrant. The hernia sac was then removed from the abdomen via the left lower quadrant. The left lower quadrant port site was closed with an 0 Vicryl suture in a Srinivasan-Sade in a [id number] fashion. Incisions were closed with 4-0 Monocryl in a subcuticular interrupted fashion. Skin glue was applied. A dressing that included cotton balls and a Tegaderm was placed over the umbilicus. Patient tolerated the procedure well.
--- NOTE | 2022-05-27 12:21 | PC.NURSE ---
Pt arrived to PACU, bipap and RT at bedside per OR request. Awake, labored respirations noted, O2 via simple mask with pt holding in front of face (pt refused to wear mask.) Monitored pt, no need for bipap at this time per RT and anesthesia, will continue to monitor pt.
[2022-05-27] MEDS: fentaNYL 50 mcg/mL INJ 2mL IVP ×2 (12:35→12:45)
[2022-05-27] MEDS: ketorolac 30 mg/mL INJ IVP (13:08)
--- NOTE | 2022-05-27 13:08 | PC.NURSE ---
Pt reports pain still 07/31, Dr Moralez ordered Toradol 30mg IVP x1. Will continue to monitor.
--- NOTE | 2022-05-27 13:38 | ANE.PACU2 ---
Inpatient post-anesthesia follow up: Airway intact: Yes Vital signs: Temperature 98.4 F Pulse Rate 82 Respiratory Rate 16 Blood Pressure 141/90 Pulse Oximetry 94 Oxygen Delivery Me thod Room Air Oxygen Flow Rate 6 Fraction of Inspir ed Oxygen Hydration adequate: Yes Nausea and vomiting: No Pain level: 1 Mental status: Baseline
[2022-05-27] MEDS: HYDROcodone-acetaminophen 5-325 mg Tablet 1 TAB PO (14:06)
--- NOTE | 2022-05-27 14:09 | PM.MISC ---
Miscellaneous Note Purpose of Documentation: Difficult airway Note: Patient was difficult bag mask, requiring three operators. LMA 4 provided adequate ventilation. Intubation attempts X3 - able to visualize with some maneuvering of glidescope, however encountered difficulty maneuvering tube through narrow mouth and airway to appropriately place in trachea
== END 2022-05-27 15:05 | disposition home or self-care (01) ==
PROVIDERS: PCP Family Medicine; Visit Provider Surgery
PROC: 0WQF4ZZ Repair Abdominal Wall, Percutaneous Endoscopic Approach (ICD-10-PCS; CPT 49594; principal; 2022-05-27 11:00)
DX: K42.0 Umbilical hernia with obstruction, without gangrene (principal); E66.01 Morbid (severe) obesity due to excess calories; Z68.45 Body mass index [BMI] 70 or greater, adult; F17.210 Nicotine dependence, cigarettes, uncomplicated
CPT/HCPCS: 49594; 81025; 84703; 88302; J1885; J2250; J3010; J3370; J3490; J7030; J7040

== ENCOUNTER → 2022-06-22 10:45 | Outpatient (BNVA) | payer OTHER, SELFPAY | PROVIDERS: PCP Family Medicine; Visit Provider Surgery | DX: Z98.890 Other specified postprocedural states (principal); Z87.19 Personal history of other diseases of the digestive system | CPT/HCPCS: 99024 ==

== ENCOUNTER 2022-09-03 22:08 | Emergency (ER) | payer OTHER, SELFPAY ==
[2022-09-03 22:15] VITALS: BP 144/82; PULSE 109; RESP 16; TEMP 36.7; O2SAT 96; BMI 80.1
[2022-09-03 22:28] VITALS: BP 136/85; PULSE 106; RESP 16; O2SAT 94
--- NOTE | 2022-09-03 22:30 | XRR_ITS ---
PROCEDURE INFORMATION: Exam: XR Chest Exam date and time: 09/03/2022 10:47 PM Age: 32 years old Clinical indication: Other: Bilateral leg swelling; Additional info: Ble swelling TECHNIQUE: Imaging protocol: Radiologic exam of the chest. Views: 1 view. COMPARISON: CT chest w con* [id number] 02/14/2016 10:19 PM FINDINGS: Lungs: Clear lungs. Pleural spaces: No pleural effusion. No pneumothorax. Heart/Mediastinum: Borderline cardiac enlargement. Bones/joints: Age appropriate. XR/XR chest 1V [id number] IMPRESSION: Borderline cardiac enlargement, otherwise normal exam.
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
[2022-09-03 22:47] LABS: Erythrocyte Sedimentation Rate 17 mm/hr (0-15)
[2022-09-03 22:49] LABS: Basophils % 0.4 %; Eosinophils # 0.3 10^3/uL (0.0-0.8); Eosinophils % 2.9 %; Hematocrit 43.6 % (37.0-47.0); Hemoglobin 13.7 g/dL (11.5-15.3); Lymphocytes # 2.1 10^3/uL (0.8-4.8); Lymphocytes % 19.2 %; Mean Corpuscular HGB Conc 31.4 g/dL (30.0-36.0); Mean Corpuscular Hemoglobin 29.4 pg (28.0-34.0); Mean Corpuscular Volume 93.6 fl (81-99); Mean Platelet Volume 10.3 fL (7.4-10.4); Monocytes # 0.6 10^3/uL (0.2-0.9); Monocytes % 5.2 %; Neutrophils # 7.67 10^3/uL (1.8-7.7); Neutrophils % 71.9 %; Nucleated Red Blood Cells % 0 %; Platelet Count 275 10^3/cmm (130-400); Red Blood Count 4.66 10^6/uL (4.1-5.3); Red Cell Distribution Width 14.6 % (12.1-15.1); White Blood Count 10.7 10^3/uL (4.0-10.0)
[2022-09-03 23:05] LABS: D Dimer 1.54 ug/mIFEU (0-0.59)
[2022-09-03 23:09] LABS: Alanine Aminotransferase 17 U/L (0-33); Albumin Level 3.5 g/dL (3.5-5.2); Alkaline Phosphatase 81 U/L (35-105); Anion Gap 14.1 (5-19); Aspartate Amino Transferase 14 U/L (0-32); Blood Urea Nitrogen 12 mg/dL (6-20); C Reactive Protein 22.6 mg/L (0.0-4.9); Calcium 8.8 mg/dL (8.5-10.5); Carbon Dioxide 26 mmol/L (22-29); Chloride 103 mmol/L (98-107); Globulin 3.4 g/dL (1.3-4.6); Glomerular Filtration Rate 96.4 mL/min (90-130); Glucose 89 mg/dL (65-115); Osmolality Calculated 287 mOsm/kg (285-295); Potassium 4.1 mmol/L (3.5-5.1); Sodium 139 mmol/L (136-145); Total Bilirubin 0.2 mg/dL (0.15-1.2); Total Protein 6.9 g/dL (6.6-8.7)
--- NOTE | 2022-09-03 23:28 | USR_ITS ---
PROCEDURE INFORMATION: Exam: US Duplex Lower Extremity Veins, Bilateral Exam date and time: 09/03/2022 11:50 PM Age: 32 years old Clinical indication: Abnormal findings; Abnormal lab test; Elevated d-dimer; Additional info: Ble edema, new edema, elevated ddimer, HX of recent surgery and implant TECHNIQUE: Imaging protocol: Real-time duplex ultrasound of the bilateral extremities with 2-D alcantar scale, color Doppler flow and spectral waveform analysis including responses to compression and other maneuvers (when performed) with image documentation. Complete exam focused on the lower extremity veins. COMPARISON: US pelv w/transvag [id number] 10/03/2015 2:59 AM FINDINGS: Right deep veins: Unremarkable. The common femoral, femoral, proximal profunda femoral and popliteal veins are patent without thrombus. Normal Doppler waveforms. Normal compressibility and/or augmentation response. Right superficial veins: Saphenofemoral junction is patent without thrombus. Left deep veins: Unremarkable. The common femoral, femoral, proximal profunda femoral and popliteal veins are patent without thrombus. Normal Doppler waveforms. Normal compressibility and/or augmentation response. Left superficial veins: Saphenofemoral junction is patent without thrombus. Soft tissues: Unremarkable. US/[place] [id number] IMPRESSION: No evidence of acute deep venous thrombosis.
[2022-09-03 23:42] LABS: Glucose Urine UA Norm (Normal); Ketones Urine Negative (Negative); Protein Urine Neg (Negative); Urine Appearance Hazy (CLEAR); Urine Color Yellow (Yellow); pH Urine 7 (5-7)
[2022-09-03 23:43] LABS: Add Urine Microscopic? YES; Bilirubin Urine Neg (Negative); Blood Urine 3+ (Negative); Leukocyte Esterase Urine Trace (Negative); Nitrate Urine Negative (Negative); Urobilinogen Urine Norm (Negative)
[2022-09-03 23:44] LABS: Bacteria Urine 1+ /hpf; Squamous Epithelial Cell Urine 25-40 /hpf (0-5); WBC Urine 0-4 /hpf (0-5)
[2022-09-03 23:53] LABS: HCG Qualitative Urine. Negative (Negative)
[2022-09-04 00:20] LABS: NT Pro B Type Natriuretic Pept 36 pg/mL (0-125)
[2022-09-04] MEDS: FUROsemide 40 mg Tablet PO (01:11)
[2022-09-04 01:32] VITALS: BP 136/85; PULSE 106; RESP 16; TEMP 36.7; O2SAT 94
== END 2022-09-04 01:33 | disposition home or self-care (01) ==
PROVIDERS: Emergency Provider Physician Assistant; PCP Family Medicine
DX: R60.0 Localized edema (principal); F17.210 Nicotine dependence, cigarettes, uncomplicated
CPT/HCPCS: 71045; 80053; 81001; 81025; 83880; 85025; 85378; 85651; 86140; 93970; 99285

== ENCOUNTER 2023-01-06 22:40 | Emergency (ER) | payer OTHER, SELFPAY ==
[2023-01-06 23:21] VITALS: BP 157/91; PULSE 113; RESP 26; TEMP 39.6; O2SAT 93; BMI 84.7
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
--- NOTE | 2023-01-07 | XRR_ITS ---
PROCEDURE INFORMATION: Exam: XR Chest Exam date and time: 01/07/2023 12:21 AM Age: 32 years old Clinical indication: Fever and other: Swelling to legs, brown urine; Patient HX: Fever, swelling to legs, brown urine; Additional info: SOB TECHNIQUE: Imaging protocol: Radiologic exam of the chest. Views: 1 view. COMPARISON: CR XR chest 1V [id number] 09/03/2022 10:47 PM FINDINGS: Lungs: Limited evaluation due to patient habitus/technique and lung hypoinflation. No obvious focal consolidation. Pleural spaces: No large pleural effusion. No pneumothorax. Heart/Mediastinum: Unremarkable cardiomediastinal silhouette. Bones/joints: No acute abnormality. XR/XR chest 1V portable [id number] IMPRESSION: Limited evaluation due to patient habitus/technique and lung hypoinflation. No obvious focal consolidation.
[2023-01-07] MEDS: sodium chloride 0.9% 1,000 ML 999 ML IV (00:02)
[2023-01-07] MEDS: acetaminophen 500 mg Tablet 1000 MG PO (00:02)
[2023-01-07 00:23] LABS: Influenza A by IFA negative (Negative); Influenza B by IFA negative (Negative)
[2023-01-07 00:30] LABS: Basophils % 0.3 %; Eosinophils % 0.1 %; Hematocrit 41.6 % (36-47); Lymphocytes % 11.9 %; Mean Corpuscular HGB Conc 30.5 g/dL (30-55); Mean Corpuscular Hemoglobin 29.1 pg (27-33); Mean Corpuscular Volume 95.2 fl (85-98); Mean Platelet Volume 10.4 fL (7.4-10.4); Monocytes # 0.4 10^3/uL (0.2-0.9); Neutrophils # 6.53 10^3/uL (1.8-7.7); Neutrophils % 82.1 %; Nucleated Red Blood Cells % 0 %; Platelet Count 191 10^3/cmm (157-399); Red Blood Count 4.37 10^6/uL (3.85-5.65); Red Cell Distribution Width 14.7 % (12.1-15.1); White Blood Count 7.96 10^3/uL (3.29-11.43)
[2023-01-07 00:51] LABS: HCG Qualitative Urine. Negative (Negative)
[2023-01-07 00:56] LABS: Alanine Aminotransferase 41 U/L (0-33); Albumin Level 3.2 g/dL (3.5-5.2); Alkaline Phosphatase 107 U/L (35-105); Anion Gap 14.9 (5-19); Aspartate Amino Transferase 29 U/L (0-32); Blood Urea Nitrogen 9 mg/dL (6-20); Calcium 8.5 mg/dL (8.5-10.5); Carbon Dioxide 23 mmol/L (22-29); Chloride 99 mmol/L (98-107); Globulin 3.8 g/dL (1.3-4.6); Glomerular Filtration Rate 82.6 mL/min (90-130); Glucose 119 mg/dL (65-115); Lactic Sepsis W/Reflex 1.7 mmol/L (0.5-2.2); Osmolality Calculated 276 mOsm/kg (285-295); Potassium 3.9 mmol/L (3.5-5.1); Sodium 133 mmol/L (136-145); Total Bilirubin 0.7 mg/dL (0.15-1.2)
[2023-01-07 00:57] LABS: Add Urine Microscopic? YES; Bilirubin Urine 1+ (Negative); Blood Urine 2+ (Negative); Glucose Urine UA Norm (Normal); Ketones Urine Negative (Negative); Leukocyte Esterase Urine Negative (Negative); Nitrate Urine Negative (Negative); Protein Urine Trace (Negative); Urine Appearance Hazy (CLEAR); Urine Color Yellow (Yellow); Urobilinogen Urine 12 mg/dL (Negative); pH Urine 7 (5-7)
[2023-01-07 00:58] LABS: Add Urine Culture? No; Bacteria Urine 2+ /hpf; Squamous Epithelial Cell Urine 15-25 /hpf (0-5)
[2023-01-07] MEDS: ibuprofen 600 mg Tablet PO (01:13)
[2023-01-07 01:16] VITALS: TEMP 38.2
[2023-01-07 01:27] VITALS: BP 159/103; PULSE 114; RESP 20; O2SAT 90
[2023-01-07 04:52] LABS: Adenovirus Not Detected (NOT DETECT); Chlamydia Pneumoniae Not Detected (NOT DETECT); Coronavirus 229E,HKU1,NL63,OC4 Not Detected (NOT DETECT); Human Metapneumovirus Not Detected (NOT DETECT); Human Rhinovirus/Enterovirus Not Detected (NOT DETECT); Influenza A Not Detected (NOT DETECT); Influenza A H1 Not Detected (NOT DETECT); Influenza A H1-2009 Not Detected (NOT DETECT); Influenza A H3 Not Detected (NOT DETECT); Influenza B Not Detected (NOT DETECT); Mycoplasma Pneumoniae Not Detected (NOT DETECT); Parainfluenza Virus Type 1 Not Detected (NOT DETECT); Parainfluenza Virus Type 2 Not Detected (NOT DETECT); Parainfluenza Virus Type 3 Not Detected (NOT DETECT); Parainfluenza Virus Type 4 Not Detected (NOT DETECT); Respiratory Syncytial Virus A Not Detected (NOT DETECT); Respiratory Syncytial Virus B Not Detected (NOT DETECT); SARS-COV-2 Not Detected (NOT DETECT)
== END 2023-01-07 01:39 | disposition home or self-care (01) ==
PROVIDERS: Emergency Provider Nurse Practitioner Family
DX: B34.9 Viral infection, unspecified (principal); Z72.0 Tobacco use; Z11.52 Encounter for screening for COVID-19
CPT/HCPCS: 36415; 71045; 80053; 81001; 81025; 83605; 85025; 87635; 87804; 96360; 99284; J7030